=== PATIENT | male | born 1985 | race Caucasian/White ===

== ENCOUNTER 2017-04-22 17:40 | Emergency (ER) | payer OTHER ==
[~2017-04-22] VITALS: Ht 172.7 cm; Wt 61.2 kg
[~2017-04-22 17:40] MED LIST: KETO10TA2 PO; ORPH100T PO
[2017-04-22] MEDS ORDERED: LEVAQUIN750 MG PO (23:45)
[2017-04-22] MEDS ORDERED: KETOROLAC TROME10 MG PO (23:45)
== END 2017-04-22 23:55 | disposition home or self-care (01) ==
LOC: ER 17:40
DX: J11.1 Influenza due to unidentified influenza virus with other respiratory manifestations (principal); E86.0 Dehydration